=== PATIENT | male | born 1970 | race Hispanic/Latino ===

== ENCOUNTER 2020-11-20 20:05 | Emergency (ER) | payer BC ==
[2020-11-20] MEDS ORDERED: ONDANSETRON HCL 4 MG/2 ML VIAL ONE (21:08)
[2020-11-20] MEDS ORDERED: ACETAMINOPHEN EXTRA STRENGTH 500 MG TABLET ONE (21:09)
[2020-11-20] MEDS ORDERED: SODIUM CHLORIDE 0.9% 1000ML 1,000 ML IV ONE (21:10)
[2020-11-20 21:11] LABS: BASOPHILS % (AUTO) 0.4 % (0.0-5.0); EOSINOPHILS % (AUTO) 1.8 % (0.0-8.0); HEMATOCRIT 47.6 % (42-54); LYMPHOCYTES % (AUTO) 24.1 % (21.0-51.0); MEAN CORPUSCULAR HEMOGLOBIN 32.3 pg (27.0-33.0); MEAN CORPUSCULAR HGB CONC 35.1 g/dL (32.0-36.0); MEAN CORPUSCULAR VOLUME 92.1 fL (79-99); MONOCYTES % (AUTO) 12.2 % (3.0-13.0); NEUTROPHILS % (AUTO) 61.4 % (40.0-77.0); PLATELET COUNT (AUTO) 302 K/uL (130-400); RED BLOOD CELL COUNT(AUTO) 5.17 MIL/uL (4.50-6.20); RED CELL DISTRIBUTION WIDTH 12.2 % (11.0-15.5); WHITE BLOOD COUNT (AUTO) 6.7 K/uL (4.8-10.8)
[2020-11-20 21:23] LABS: CREATININE 1.1 mg/dL (0.5-1.5)
[2020-11-20 21:26] LABS: INR 0.93 (0.85-1.15); PROTHROMBIN TIME 10.2 SEC (9.6-11.6)
[2020-11-20 21:27] LABS: BILIRUBIN,TOTAL 0.5 mg/dL (0.2-1.0); TOTAL PROTEIN, SERUM 8.4 g/dL (6.0-8.3)
[2020-11-20 21:28] LABS: PARTIAL THROMBOPLASTIN TIME 25.8 SEC (26.3-35.5)
[2020-11-20 21:35] LABS: APPEARANCE,URINE Clear (CLEAR); BILIRUBIN,URINE Negative (NEGATIVE); COLOR,URINE Yellow (YELLOW); GLUCOSE, URINE (UA) Negative (NEGATIVE); KETONES,URINE Negative (NEGATIVE); LEUKOCYTE ESTERASE ,URINE Negative (NEGATIVE); NITRATE,URINE Negative (NEGATIVE); OCCULT BLOOD,URINE Negative (NEGATIVE); PROTEIN,URINE Negative (NEGATIVE)
[2020-11-20] MEDS ORDERED: DOXYCYCLINE HYCLATE 100 MG TABLET PO ONE (21:58)
[2020-11-20] MEDS ORDERED: KETOROLAC TROMETHAMINE 30MG/ML ONE (22:05)
== END 2020-11-20 22:21 | disposition home or self-care (01) ==
LOC: EDH 20:05
DX: R50.9 Fever, unspecified (principal); R53.83 Other fatigue; R53.81 Other malaise; M62.830 Muscle spasm of back; R51.9 Headache, unspecified; Z20.822 Contact with and (suspected) exposure to COVID-19; Z88.0 Allergy status to penicillin
CPT/HCPCS: 36415; 71045; 80053; 81003; 82550; 83605; 83690; 84484; 85025; 85610; 85730; 86757; 87040 ×2; 87426; 87804 ×2; 93005; 96361; 96374; 96375; 99285; J1885; J2405; J7030; U0003

== ENCOUNTER → 2022-08-04 | Outpatient (CLI) | payer BC | END | disposition home or self-care (01) | LOC: SLP 20:26 | PROVIDERS: ATTEND Nurse Practitioner Family | DX: G47.33 Obstructive sleep apnea (adult) (pediatric) (principal) | CPT/HCPCS: 95810 ==

== ENCOUNTER → 2022-08-16 | Outpatient (CLI) | payer BC | END | disposition home or self-care (01) | LOC: SLP 21:23 | PROVIDERS: ATTEND Nurse Practitioner Family | DX: G47.33 Obstructive sleep apnea (adult) (pediatric) (principal) | CPT/HCPCS: 95811 ==

== ENCOUNTER 2023-12-16 16:51 | Emergency (ER) | payer BC ==
[~2023-12-16] VITALS: Ht 172.7 cm; Wt 80.7 kg
[2023-12-16] MEDS ORDERED: DICL25TA11 PO (18:02)
[2023-12-16 18:08] VITALS: BP 123/86; PULSE 63; RESP 18; O2SAT 97
[2023-12-16] MEDS ORDERED: MICO71PO11 TP (18:23)
== END 2023-12-16 18:38 | disposition home or self-care (01) ==
LOC: EDH 16:51
DX: M72.2 Plantar fascial fibromatosis (principal); M77.32 Calcaneal spur, left foot; B35.1 Tinea unguium; B35.3 Tinea pedis; M21.42 Flat foot [pes planus] (acquired), left foot; I10 Essential (primary) hypertension; Z88.0 Allergy status to penicillin
CPT/HCPCS: 73610

== ENCOUNTER 2024-10-23 10:04 | Emergency (ER) | payer BC ==
[~2024-10-23] VITALS: Ht 172.7 cm; Wt 81.6 kg
[~2024-10-23 10:04] MED LIST: DICL25TA11 PO; MICO71PO11 TP
--- NOTE | 2024-10-23 10:42 | HMCIMG ---
Exam Type: CHEST 1VW Clinical Information: CP Comparison: None Findings: The lungs are clear of infiltrates. The heart is normal in size. The bony and soft tissue structures of the chest are unremarkable. Impression: Clear lungs.
--- NOTE | 2024-10-23 10:48 | ERN ---
General Chief Complaint: Chest Pain Stated Complaint: CHEST PAIN Time Seen by MD: 10:07 Source: patient History of Present Illness Initial Comments PATIENT IS A 54-YEAR-OLD MALE COMING IN WITH MULTIPLE COMPLAINTS. PATIENT STATES THAT HE HAS FELT RIGHT-SIDED CHEST PAIN FOR 2-3 WEEKS ON AND OFF. ALONG WITH THE HIS HE STATES HE EVERY NOW AND THEN HE DOES HAVE A LEFT HAND NUMBNESS. AT THE MOMENT OF EVALUATION PATIENT STATES HE DOES NOT HAVE ANY NUMBNESS. HE WAS ALSO CONCERNED BECAUSE HE HAS BEEN HAVING LEFT CALF PAIN WHEN LAYS DOWN. Allergies: Coded Allergies: Penicillins (Unverified Allergy, Unknown, 12/16/23) Home Meds Active Scripts Miconazole Nitrate (Zeasorb AF) 2 % Powder, 1 APPL TP DAILY for 30 Days, #71 GM 1 Refill APPLY TO FOOTWEAR/FEET DIRECTED FOR ATHLETE FOOT PREVENTION/TREATMENT Prov:TU DALEY 12/16/23 Diclofenac Sodium (Voltaren) 25 Mg Tab, 25 MG PO TIDP PRN for PAIN LEVEL 5 TO 10 for 30 Days, #90 TAB Prov:TU DALEY 12/16/23 Past Medical History Past Medical History: Hypertension, Kidney Stone Past Surgical History: Other Surgical History Other: HERNIA, KIDNEY STONES ROS Dictation CONSTITUTIONAL: NO CHILLS, NO FEVER, NO WEAKNESS, NO DIAPHORESIS, NO MALAISE. HEAD/FACE: NO SIGNS OF TRAUMA. EENT: NO EYE PAIN, NO BLURRED VISION, NO TEARING, NO DOUBLE VISION, NO EAR PAIN, NO EAR DISCHARGE, NO NOSE PAIN, NO NASAL CONGESTION, NO THROAT PAIN, NO THROAT SWELLING, NO MOUTH PAIN. RESPIRATORY: NO COUGH, NO ORTHOPNEA, NO SOB, NO STRIDOR, NO WHEEZING. CARDIOVASCULAR: NO CHEST PAIN, NO EDEMA, NO PALPITATIONS, NO SYNCOPE. GASTROINTESTINAL/ABDOMINAL: NO ABDOMINAL PAIN, NO CONSTIPATION, NO DIARRHEA, NO NAUSEA, NO VOMITING. GENITOURINARY: NO ABNORMAL DISCHARGE, NO DYSURIA, NO FREQUENT URINATION, NO HEMATURIA. NO COMPLAINTS OF PAIN IN THE GENITALS. MUSCULOSKELETAL: NO BACK PAIN, NO GOUT, NO JOINT PAIN, NO JOINT SWELLING, NO MUSCLE PAIN, NO MUSCLE STIFFNESS, NO NECK PAIN. INTEGUMENTARY: NO CHANGE IN COLOR, NO CHANGE IN HAIR/NAILS, NO DRYNESS, NO LESION, NO LUMPS, NO RASH. NEUROLOGICAL/PSYCH: NO ANXIETY, NOT DEPRESSED, NO EMOTIONAL PROBLEM, NO HEA DACHE, NO NUMBNESS, NO PRE-EXISTING DEFICIT, NO HISTORY OF SEIZURES, NO TREMORS, NO WEAKNESS. HEMATOLOGIC/LYMPHATIC: NOT ANEMIC, NO HISTORY OF BLOOD CLOTS, NO APPARENT BLEEDING, NO BRUISING, GLANDS NOT SWOLLEN. ALL SYSTEMS NEGATIVE, EXCEPT NOTED. Physical Exam Physical Exam Dictation VITAL SIGNS: REVIEWED. GENERAL APPEARANCE: ALERT, ORIENTED X3, NO ACUTE DISTRESS, OBESE. HEAD AND FACE: NON-TRAUMATIC. EYES: PERRL, PINK CONJUNCTIVAS, EYELID NO TRAUMA, ANTERIOR CHAMBER CLEAR. EARS: PINNAS INTACT AND NO SIGNS OF TRAUMA OR ERYTHEMA. EAR CANALS CLEAR AND NO DISCHARGE. TMS NO ERYTHEMA. NOSE: NO DISCHARGE, NO BLEEDING. OROPHARYNX: MOUTH NORMAL, TEETH NO CARIES, TONGUE PINK. PHARYNX CLEAR, NO ERYTHEMA. TONSILS NO EXUDATES, NO ABSCESSES NOTED. MUCOUS MEMBRANE MOIST. NECK: SUPPLE, NON-TENDER, NO THYROMEGALY, NO MASSES, NO JVD, NO BRUITS. BREAST: DEFERRED. CHEST: NO TENDERNESS, NO CREPITUS, NO PARADOXICAL MOVEMENT, NO RETRACTIONS. LUNGS: CLEAR, WELL-VENTILATED, SYMMETRIC, NO RALES, NO WHEEZING, NO RHONCHI, NO STRIDOR, GOOD BREATH SOUNDS BILATERALLY. HEART: REGULAR RATE, REGULAR RHYTHM, NO MURMUR, NO GALLOPS. VASCULAR: NO PERIPHERAL EDEMA. ABDOMEN: SOFT, POSITIVE BOWEL SOUNDS, NONDISTENDED, NO GUARDING, NONTENDER, NO REBOUND, NO MASSES NO HEPATOMEGALY, NO SPLENOMEGALY, NO LEONARD'S SIGN, NO HERNIAS. RECTAL: DEFERRED. GENITAL: DEFERRED. NEUROLOGICAL: NORMAL SPEECH, GROSS MOTOR FUNCTION INTACT, GROSS SENSORY FUNCTION INTACT. MUSCULOSKELETAL: NECK NONTENDER, FULL RANGE OF MOTION, BACK NONTENDER, FULL RANGE OF MOTION. EXTREMITIES: NONTENDER, FULL RANGE OF MOTION. SKIN: COLOR PINK, DRY, NO TURGOR, NO RASH, NO LACERATIONS, NO ABRASIONS, NO CONTUSIONS. LYMPHATICS: DEFERRED. Results Laboratory and Microbiology Lab and Micro Result Laboratory Tests Test 10/23/24 10:42 10/23/24 10:56 10/23/24 14:34 White Blood Count 7.7 K/uL (4.8-10.8) Red Blood Count 4.80 MIL/uL (4.50-6.20) Hemoglobin 15.6 g/dL (14.0-18.0) Hematocrit 45.2 % (42-54) Mean Corpuscular Volume 94.2 fL (79-99) Mean Corpuscular Hemoglobin 32.5 pg (27.0-33.0) Mean Corpuscular Hemoglobin Concent 34.5 g/dL (32.0-36.0) Red Cell Distribution Width 12.2 % (11.0-15.5) Platelet Count 269 K/uL (130-400) Mean Platelet Volume 9.2 fL (7.5-10.5) Immature Granulocyte % (Auto) 0.9 % (0-1) Neutrophils (%) (Auto) 61.8 % (40.0-77.0) Lymphocytes (%) (Auto) 24.9 % (21.0-51.0) Monocytes (%) (Auto) 9.7 % (3.0-13.0) Eosinophils (%) (Auto) 2.3 % (0.0-8.0) Basophils (%) (Auto) 0.4 % (0.0-5.0) Neutrophils # (Auto) 4.8 K/uL (1.8-7.7) Lymphocytes # (Auto) 1.9 K/uL (1.0-4.8) Monocytes # (Auto) 0.8 K/uL (0.1-1.0) Eosinophils # (Auto) 0.18 K/uL (0.00-0.70) Basophils # (Auto) 0.03 K/uL (0.00-0.20) Absolute Immature Granulocyte (auto 0.07 K/uL (0-1) Nucleated Red Blood Cells 0.0 % (0.0-0.19) Prothrombin Time 10.6 SEC (9.6-11.6) Prothromb Time International Ratio 0.94 (0.85-1.15) Activated Partial Thromboplast Time 28.3 SEC (26.3-35.5) Sodium Level 140 mmol/L (136-145) Potassium Level 4.1 mmol/L (3.5-5.1) Chloride Level 104 mmol/L (101-111) Carbon Dioxide Level 29 mmol/L (21-32) Blood Urea Nitrogen 10 mg/dL (7-18) Creatinine 0.9 mg/dL (0.5-1.3) Glomerular Filtration Rate Calc 101 mL/min (>90) Random Glucose 102 mg/dL (70-105) Total Calcium 9.3 mg/dL (8.5-10.1) Magnesium Level 1.80 mg/dL (1.80-2.40) Total Creatine Kinase 448 U/L (21-232) #*H 385 U/L (21-232) H Troponin I High Sensitivity 8 ng/L (4-75) B-Type Natriuretic Peptide 30 pg/mL (0-100) Urine Color YELLOW (YELLOW) Urine Appearance CLEAR (CLEAR) Urine pH 5.0 (5.0-8.0) Urine Specific [place] 1.025 (1.001-1.031) Urine Protein NEGATIVE mg/dL (NEGATIVE) Urine Glucose (UA) NEGATIVE mg/dL (NEGATIVE) Urine Ketones NEGATIVE mg/dL (NEGATIVE) Urine Occult Blood NEGATIVE (NEGATIVE) Urine Nitrate NEGATIVE (NEGATIVE) Urine Bilirubin NEGATIVE mg/dL (NEGATIVE) Urine Urobilinogen 0.2 mg/dL (0.2-1.0) Urine Leukocyte Esterase NEGATIVE Valentin/uL Labs Reviewed?: Yes EKG/XRAY/US/CT/MRI EKG Comment 10/23/2024 TIME 9:58 A.M. VENTRICULAR RATE 62 SINUS RHY[address]M [place] [address] WAVE ELEVATION OR DEPRESSION X-RAY Comment [address] [address] IMAGING REPORT Signed PATIENT: LYDIA LOOMIS MR#: [id number] : 1970 SEX: M AGE: 54 LOCATION: [facility] ORDER 1008 STATUS: REG ER REPORT#: [id number] SERVICE 1007 REASON: CP ORDERING PHYSICIAN: MARINO BENNETT MD PROCEDURE: CXR1VW - CHEST 1VW Exam Type: CHEST 1VW Clinical Information: CP Comparison: None Findings: The lungs are clear of infiltrates. The heart is normal in size. The bony and soft tissue structures of the chest are unremarkable. Impression: Clear lungs. DICTATED BY: MICHAEL PEREZ MD DATE: 10/23/24 104 ELECTRONICALLY SIGNED BY: MICHAEL PEREZ MD DATE: 10/23/24 104 MDM MDM: DIFFERENTIAL DIAGNOSIS: ELEVATED CK, DEHYDRATION, MUSCLE STRAIN PATIENT IS A 54-YEAR-OLD MALE COMING IN TO BE EVALUATED FOR MULTIPLE COMPLAINTS. PATIENT STATES HE HAS BEEN HAVING MUSCLE PAIN AND CHEST DISCOMFORT. PATIENT WAS FOUND TO HAVE ELEVATED CK. PATIENT RECEIVED [address] L OF FLUID AND CT WAS REPEATED CK IMPROVED SIGNIFICANTLY WELL SYMPTOMS. PATIENT WILL BE DISCHARGED IN STABLE CONDITION. ED Course Orders Procedure Category Date Status Time Cbc With Differential LAB 10/23/24 Complete 10:07 Prothrombin Time With LAB 10/23/24 Complete INR 10:07 B-Type Natriuretic LAB 10/23/24 Complete Peptide 10:07 Chest 1vw RAD 10/23/24 Resulted 10:07 12 Lead Ekg Tracing- EKG 10/23/24 Logged Technical 10:07 Magnesium LAB 10/23/24 Complete 10:07 Creatine Kinase, Total LAB 10/23/24 Complete 10:07 Troponin I High LAB 10/23/24 Complete Sensitivity 10:07 Urinalysis Profile LAB 10/23/24 Complete 10:07 Partial LAB 10/23/24 Complete Thromboplastin Time 10:07 Basic Metabolic Panel LAB 10/23/24 Complete 10:07 0.9%Nacl 1000ml (Ns PHA 10/23/24 Complete 1000ml) 12:00 Creatine Kinase, Total LAB 10/23/24 Complete 11:35 0.9%Nacl 1000ml (Ns PHA 10/23/24 Complete 1000ml) 12:00 Current Medications Medications (Trade) Dose Ordered Sig/Es[place]anza Route PRN Reason Start Time Stop Time Status Last Admin Dose Admin Sodium Chloride 1,000 ml @ 0 mls/hr ONCE ONCE IV 10/23/24 12:00 10/23/24 12:01 DC 10/23/24 11:50 Sodium Chloride 1,000 ml @ 0 mls/hr ONCE ONCE IV 10/23/24 12:00 10/23/24 12:01 DC 10/23/24 11:51 Vital Signs Date Time Temp Pulse Resp B/P (MAP) Pulse Ox O2 Delivery O2 Flow Rate FiO2 10/23/24 10:10 98.4 66 16 117/85 97 Room Air* 0 21 10/23/24 10:05 98.4 66 16 117/85 97 Room Air 0 DX & DISP Disposition: Discharge Departure Impression: Primary Impression: Elevated CK Condition: Stable Additional Instructions: FOLLOW-UP WITH PRIMARY CARE PROVIDER IN 1 TO 2 DAYS. TAKE MEDICATIONS DIRECTED HERE IN THE EMERGENCY ROOM. OKAY TO CONTINUE HOME MEDICATIONS UNLESS OTHERWISE DISCUSSED DURING YOUR VISIT IN THE EMERGENCY ROOM TODAY. RETURN TO YOUR NEAREST EMERGENCY ROOM IF SYMPTOMS WORSEN OR IF THERE IS NO IMPROVEMENT. CALL 911 IF YOU NEED IMMEDIATE ASSISTANCE. TAKE TYLENOL [id number] NEEDED AND IF NO CONTRAINDICATIONS ARE PRESENT. INCREASE ORAL HYDRATION. A WOUND CULTURE OR URINE CULTURE WAS ORDERED HERE IN THE EMERGENCY ROOM DEPARTMENT PLEASE FOLLOW-UP WITH PRIMARY CARE PROVIDER AND ADVISE THEM TO GET REPEAT PORTS FROM OUR FACILITY. IF YOU HAD ANY LUCAS WRAP/SPLINTS THAT WERE APPLIED HERE, PLEASE DO NOT REMOVE THEM UNTIL YOU SEE YOUR PRIMARY CARE OR SPECIALTY. REFERRALS: Referrals: CHHAYA VALENCIA (PCP) Time of Disposition: 15:18 MARINO BENNETT MD Oct 23, 2024 10:48
[2024-10-23 11:05] LABS: INR 0.94 (0.85-1.15); PROTHROMBIN TIME 10.6 SEC (9.6-11.6)
[2024-10-23 11:06] LABS: PARTIAL THROMBOPLASTIN TIME 28.3 SEC (26.3-35.5)
[2024-10-23 11:07] LABS: CREATININE 0.9 mg/dL (0.5-1.3); POTASSIUM 4.1 mmol/L (3.5-5.1)
[2024-10-23 11:13] LABS: BASOPHILS # (AUTO) 0.03 K/uL (0.00-0.20); BASOPHILS % (AUTO) 0.4 % (0.0-5.0); EOSINOPHILS # (AUTO) 0.18 K/uL (0.00-0.70); EOSINOPHILS % (AUTO) 2.3 % (0.0-8.0); HEMATOCRIT 45.2 % (42-54); IMMATURE GRANULOCYTE ABSOLUTE 0.07 K/uL (0-1); LYMPHOCYTES # (AUTO) 1.9 K/uL (1.0-4.8); LYMPHOCYTES % (AUTO) 24.9 % (21.0-51.0); MEAN CORPUSCULAR HEMOGLOBIN 32.5 pg (27.0-33.0); MEAN CORPUSCULAR HGB CONC 34.5 g/dL (32.0-36.0); MEAN CORPUSCULAR VOLUME 94.2 fL (79-99); MONOCYTES # (AUTO) 0.8 K/uL (0.1-1.0); MONOCYTES % (AUTO) 9.7 % (3.0-13.0); NEUTROPHILS # (AUTO) 4.8 K/uL (1.8-7.7); NEUTROPHILS % (AUTO) 61.8 % (40.0-77.0); PLATELET COUNT (AUTO) 269 K/uL (130-400); RED CELL DISTRIBUTION WIDTH 12.2 % (11.0-15.5); WHITE BLOOD COUNT (AUTO) 7.7 K/uL (4.8-10.8)
[2024-10-23 11:14] LABS: APPEARANCE,URINE CLEAR (CLEAR); BILIRUBIN,URINE NEGATIVE (NEGATIVE); COLOR,URINE YELLOW (YELLOW); GLUCOSE, URINE (UA) NEGATIVE (NEGATIVE); KETONES,URINE NEGATIVE (NEGATIVE); LEUKOCYTE ESTERASE ,URINE NEGATIVE Leu/uL (NEGATIVE); NITRATE,URINE NEGATIVE (NEGATIVE); OCCULT BLOOD,URINE NEGATIVE (NEGATIVE); PROTEIN,URINE NEGATIVE (NEGATIVE); UROBILINOGEN,URINE 0.2 mg/dL (0.2-1.0)
[2024-10-23 11:20] LABS: ADD UA MICROSCOPIC NO
[2024-10-23 11:20] LABS: B-TYPE NATRIURETIC PEPTIDE 30 pg/mL (0-100)
[2024-10-23 11:22] LABS: MAGNESIUM 1.8 mg/dL (1.80-2.40)
[2024-10-23] MEDS: 0.9%NACL 1000ML 1,000 ML IV ONE ×2 (11:50→11:51)
--- NOTE | 2024-10-23 15:19 | EKG ---
[facility] Test Date: 2024-10-23 Test Time: 09:58:20 Pat Name: LYDIA LOOMIS Department: ED Room: Gender: M [employer]: [id number] : 1970 Requested By: MARINO BENNETT Order Number: [id number] Reading MD: Trell Dow Measurements Intervals [place] Rate: 62 P: 0 [place]: 147 QRS: 65 QRSD: 81 T: 32 QT: 382 QTc: 389 Interpretive Statements Sinus rhythm Compared to ECG 11/20/2020 20:55:07 No significant changes Electronically Signed On 10-24-2024 14:55:26 [employer] by Trell Dow Please click the below link to view image of tracing.
[2024-10-23 15:50] VITALS: BP 125/75; PULSE 65; RESP 18; TEMP 98.4; O2SAT 98
== END 2024-10-23 15:55 | disposition home or self-care (01) ==
LOC: EDH 10:04
DX: R74.8 Abnormal levels of other serum enzymes (principal); I10 Essential (primary) hypertension; Z88.0 Allergy status to penicillin
CPT/HCPCS: 99284; 96360; 71045; 82550 ×2; 83735; 84484; 80048; 83880; 85025; 85610; 85730; 81003; 36415; 93005; J7030

== ENCOUNTER 2024-11-06 22:12 | Emergency (ER) | payer BC ==
[~2024-11-06] VITALS: Ht 172.7 cm; Wt 81.2 kg
--- NOTE | 2024-11-06 22:16 | NUR ---
UA CUP PROVIDED
[2024-11-06 22:46] LABS: ADD UA MICROSCOPIC YES; APPEARANCE,URINE CLEAR (CLEAR); BILIRUBIN,URINE NEGATIVE (NEGATIVE); COLOR,URINE LIGHT-YELLOW (YELLOW); GLUCOSE, URINE (UA) NEGATIVE (NEGATIVE); KETONES,URINE NEGATIVE (NEGATIVE); LEUKOCYTE ESTERASE ,URINE NEGATIVE Leu/uL (NEGATIVE); NITRATE,URINE NEGATIVE (NEGATIVE); OCCULT BLOOD,URINE NEGATIVE (NEGATIVE); PROTEIN,URINE 10 mg/dL (NEGATIVE)
[2024-11-06 22:49] LABS: MUCUS,URINE RARE LPF (None Seen); WBC,URINE 0-1 /HPF (0-1)
--- NOTE | 2024-11-06 23:26 | ERN ---
General Chief Complaint: Multiple Complaints Stated Complaint: ABD PAIN, UA PAIN Time Seen by MD: 23:01 Source: patient History of Present Illness Initial Comments Patient is a healthy 54-year-old male who noticed that he has had a fever starting this afternoon and then he woke up with a headache this morning. Both of these things are unusual for him. He stated he went to an urgent clinic that did a UA and thought maybe the patient had an infection could not make a definitive diagnosis and therefore sent the patient to the emergency room for further workup. The patient also states that it hurts when he urinates and he feels a kind of pressure in his bladder. He also says he feels just a little bit off. He states his symptoms are staying the same not getting worse not getting better. Patient's only past medical history is hypertension but he does not take any medications for it and he measured his blood pressure today it was 128. He had a bilateral inguinal hernia repairs and a history of a kidney stone 20 years ago. Timing/Duration: 4-6 hours, constant Associated Symptoms: fever/chills Allergies: Coded Allergies: Penicillins (Unverified Allergy, Unknown, 12/16/23) Home Meds Active Scripts Miconazole Nitrate (Zeasorb AF) 2 % Powder, 1 APPL TP DAILY for 30 Days, #71 GM 1 Refill APPLY TO FOOTWEAR/FEET DIRECTED FOR ATHLETE FOOT PREVENTION/TREATMENT Prov:TU DALEY 12/16/23 Diclofenac Sodium (Voltaren) 25 Mg Tab, 25 MG PO TIDP PRN for PAIN LEVEL 5 TO 10 for 30 Days, #90 TAB Prov:TU DALEY 12/16/23 Past Medical History Past Medical History: No Pertinent History, Hypertension, Kidney Stone Surgical History Other: HERNIA, KIDNEY STONES PSYCH History: no pertinent psych hx Constitutional: (+) fever Genitourinary: (+) dysuria, (+) pain Review of Systems: was completed, & the rest were negative. Nurses Notes Reviewed: Yes Physical Exam General Appearance: (+) no apparent distress General Appearance comment Patient appears healthy resting comfortably in the [facility] no acute distress. Orientation: (+) oriented x 3 Head/Face Trauma: No Eye: bilateral eye normal inspection, bilateral eye PERRL, bilateral eye EOMI Ear, Nose, Throat: (+) hearing grossly normal, (+) normal ENT inspection Neck: (+) normal inspection, (+) supple, (+) full range of motion Respiratory: (+) chest non-tender, (+) lungs clear, (+) well ventilated Heart: (+) regular, (+) no gallop Vascular: (+) no edema, (+) normal peripheral pulse, (+) no JVD Gastrointestinal: (+) soft, (+) non-tender, (+) bowel sound present Back: (+) normal inspection, (+) no CVA tenderness Back Comment The patient's back pain is quite low and his tenderness on exam as a bilateral iliac crests. Patient's pain and tenderness in his lower back are quite mild. Extremities: (+) normal range of motion, (+) non-tender, (+) no pedal edema Neurologic/Psychiatric: (+) normal speech, (+) no motor defecits, (+) no sensory deficits Skin: (+) normal color, (+) warm/dry Results Laboratory and Microbiology Lab and Micro Result Laboratory Tests Test 11/06/24 22:22 11/06/24 23:33 Urine Color LIGHT-YELLOW (YELLOW) Urine Appearance CLEAR (CLEAR) Urine pH 6.0 (5.0-8.0) Urine Specific [place] 1.032 (1.001-1.031) Urine Protein 10 mg/dL (NEGATIVE) H Urine Glucose (UA) NEGATIVE mg/dL (NEGATIVE) Urine Ketones NEGATIVE mg/dL (NEGATIVE) Urine Occult Blood NEGATIVE (NEGATIVE) Urine Nitrate NEGATIVE (NEGATIVE) Urine Bilirubin NEGATIVE mg/dL (NEGATIVE) Urine Urobilinogen 2.0 mg/dL (0.2-1.0) H Urine Leukocyte Esterase NEGATIVE Valentin/uL Urine RBC None /HPF (0-1) Urine WBC 0-1 /HPF (0-1) Urine Bacteria None /HPF (None Seen) White Blood Count 9.9 K/uL (4.8-10.8) Red Blood Count 4.53 MIL/uL (4.50-6.20) Hemoglobin 14.5 g/dL (14.0-18.0) Hematocrit 42.3 % (42-54) Mean Corpuscular Volume 93.4 fL (79-99) Mean Corpuscular Hemoglobin 32.0 pg (27.0-33.0) Mean Corpuscular Hemoglobin Concent 34.3 g/dL (32.0-36.0) Red Cell Distribution Width 12.2 % (11.0-15.5) Platelet Count 287 K/uL (130-400) Mean Platelet Volume 9.2 fL (7.5-10.5) Immature Granulocyte % (Auto) 0.3 % (0-1) Neutrophils (%) (Auto) 55.8 % (40.0-77.0) Lymphocytes (%) (Auto) 29.5 % (21.0-51.0) Monocytes (%) (Auto) 11.6 % (3.0-13.0) Eosinophils (%) (Auto) 2.5 % (0.0-8.0) Basophils (%) (Auto) 0.3 % (0.0-5.0) Neutrophils # (Auto) 5.5 K/uL (1.8-7.7) Lymphocytes # (Auto) 2.9 K/uL (1.0-4.8) Monocytes # (Auto) 1.2 K/uL (0.1-1.0) H Eosinophils # (Auto) 0.25 K/uL (0.00-0.70) Basophils # (Auto) 0.03 K/uL (0.00-0.20) Absolute Immature Granulocyte (auto 0.03 K/uL (0-1) Nucleated Red Blood Cells 0.0 % (0.0-0.19) Sodium Level 138 mmol/L (136-145) Potassium Level 4.0 mmol/L (3.5-5.1) Chloride Level 102 mmol/L (101-111) Carbon Dioxide Level 28 mmol/L (21-32) Blood Urea Nitrogen 19 mg/dL (7-18) H Creatinine 0.9 mg/dL (0.5-1.3) Glomerular Filtration Rate Calc 101 mL/min (>90) Random Glucose 103 mg/dL (70-105) Total Calcium 9.0 mg/dL (8.5-10.1) Total Bilirubin 0.4 mg/dL (0.2-1.0) Aspartate Amino Transf (AST/SGOT) 34 U/L (10-37) Alanine Aminotransferase (ALT/SGPT) 76 U/L (12-78) Alkaline Phosphatase 90 U/L (50-136) Total Protein 7.5 g/dL (6.0-8.3) Albumin 3.8 g/dL (3.5-5.0) Labs Reviewed?: Yes MDM The patient gives a history that may be consistent with a UTI. He does not have costal vertebral angle tenderness. A UA obtained here is negative for everything and a urine culture I expect would be negative. I have ordered a CBC , procalcitonin and a CMP. I will also bolus the patient a L of saline. I think abdominal imaging would be negative. The patient is eating well. In the absence of hard laboratory data, at this point, I feel no need to give the patient antibiotics. ED Course Orders Procedure Category Date Status Time Urinalysis Profile LAB 11/06/24 Complete 22:27 Cbc With Differential LAB 11/06/24 Complete 23:01 Comprehensive LAB 11/06/24 Complete Metabolic Panel 23:01 0.9%Nacl 1000ml (Ns PHA 11/06/24 Complete 1000ml) 23:30 Current Medications Medications (Trade) Dose Ordered Sig/[place] Route PRN Reason Start Time Stop Time Status Last Admin Dose Admin Sodium Chloride 1,000 ml @ 0 mls/hr ONCE ONCE IV 11/06/24 23:30 11/06/24 23:31 DC 11/06/24 23:49 Vital Signs Date Time Temp Pulse Resp B/P (MAP) Pulse Ox O2 Delivery O2 Flow Rate FiO2 11/06/24 23:18 98.4 64 16 128/82 99 Room Air* 0 21 11/06/24 22:13 97.9 69 16 132/82 98 Room Air Patient's laboratory studies have all come back normal except for a mildly elevated BUN. Patient's UA is negative. His white cell count is normal. His chemistry panel is normal except for the BUN. The patient's back pain is at his bilateral iliac crest which is inconsistent with a renal calculus in his ureteral conduit. I explained all of this to the patient I told him that I would not prescribe him any antibiotics. He was safe to go home. He was pleased to know that he does not have any signs of an infection. his low back pain is probably not related to kidney stones. I will discharge him home. Follow up p.r.n.. HEART Score Response (Comments) Value History: Low suspicion (0) 0 Total 0 DX & DISP Disposition: Discharge Departure Impression: Primary Impression: Uremia Condition: Stable Referrals: CHHAYA VALENCIA (PCP) JSOE STANLEY MD Nov 06, 2024 23:26
[2024-11-06 23:42] LABS: BASOPHILS # (AUTO) 0.03 K/uL (0.00-0.20); BASOPHILS % (AUTO) 0.3 % (0.0-5.0); EOSINOPHILS # (AUTO) 0.25 K/uL (0.00-0.70); EOSINOPHILS % (AUTO) 2.5 % (0.0-8.0); HEMATOCRIT 42.3 % (42-54); IMMATURE GRANULOCYTE ABSOLUTE 0.03 K/uL (0-1); LYMPHOCYTES # (AUTO) 2.9 K/uL (1.0-4.8); LYMPHOCYTES % (AUTO) 29.5 % (21.0-51.0); MEAN CORPUSCULAR HGB CONC 34.3 g/dL (32.0-36.0); MEAN CORPUSCULAR VOLUME 93.4 fL (79-99); MONOCYTES # (AUTO) 1.2 K/uL (0.1-1.0); MONOCYTES % (AUTO) 11.6 % (3.0-13.0); NEUTROPHILS # (AUTO) 5.5 K/uL (1.8-7.7); NEUTROPHILS % (AUTO) 55.8 % (40.0-77.0); PLATELET COUNT (AUTO) 287 K/uL (130-400); RED BLOOD CELL COUNT(AUTO) 4.53 MIL/uL (4.50-6.20); RED CELL DISTRIBUTION WIDTH 12.2 % (11.0-15.5); WHITE BLOOD COUNT (AUTO) 9.9 K/uL (4.8-10.8)
[2024-11-06] MEDS: 0.9%NACL 1000ML 1,000 ML IV ONE (23:49)
[2024-11-07 00:03] LABS: CREATININE 0.9 mg/dL (0.5-1.3)
[2024-11-07 00:08] LABS: ALBUMIN 3.8 g/dL (3.5-5.0); BILIRUBIN,TOTAL 0.4 mg/dL (0.2-1.0); TOTAL PROTEIN, SERUM 7.5 g/dL (6.0-8.3)
[2024-11-07 00:37] VITALS: BP 104/59; PULSE 61; RESP 14; TEMP 98.5; O2SAT 100
== END 2024-11-07 00:45 | disposition home or self-care (01) ==
LOC: EDH 22:12
DX: N19 Unspecified kidney failure (principal); I10 Essential (primary) hypertension; Z88.0 Allergy status to penicillin
CPT/HCPCS: 99283; 80053; 85025; 81001; 36415; J7030